=== PATIENT | male | born 1980 | race Asian ===

== ENCOUNTER 2020-07-25 07:58 | Outpatient (REF) | payer OTHER, SELFPAY | END 2020-07-25 07:59 | disposition home or self-care (01) | LOC: HO.BBR 07:58 | PROVIDERS: PCP Internal Medicine; Visit Provider Internal Medicine Hematology & Oncology | DX: Z13.89 Encounter for screening for other disorder (principal) ==

== ENCOUNTER 2020-08-18 08:57 | Outpatient (REF) | payer OTHER, SELFPAY | END 2020-08-18 08:58 | disposition home or self-care (01) | LOC: HO.BBR 08:57 | PROVIDERS: Visit Provider Internal Medicine Hematology & Oncology | DX: Z13.89 Encounter for screening for other disorder (principal) ==

== ENCOUNTER 2020-09-07 09:14 | Outpatient (REF) | payer OTHER, SELFPAY ==
[2020-09-07 09:57] LABS: MANUAL DIFF FLAG NO
[2020-09-07 10:15] LABS: Basophils Percent Auto 0.2 % (0-2); Eosinophils Absolute Auto 0.1 X10*3/uL (0.0-0.4); Hematocrit 38.8 % (42-52); Hemoglobin 13.1 g/dl (14.0-18.0); Imm Gran Abs Auto 0.01 X10*3/uL (0.00-0.03); Imm Gran Pct Auto 0.2 % (0.0-0.4); Lymphocytes Absolute Auto 1.5 X10*3/uL (1.2-4.9); Lymphocytes Percent Auto 30.8 % (20-40); Mean Corpuscular HGB Conc 33.8 g/dl (31.0-36.0); Mean Corpuscular Hemoglobin 29.8 pg (27.0-33.0); Mean Corpuscular Volume 88.4 fL (80-98); Mean Platelet Volume 11.8 fL (9.4-12.4); Monocytes Absolute Auto 0.4 X10*3/uL (0.1-1.2); Monocytes Percent Auto 9.1 % (2-11); Neutrophils Absolute Auto 2.8 X10*3/uL (2.0-8.3); Neutrophils Percent Auto 58.7 % (45-73); Platelet Count 203 X10*3/uL (160-400); Red Blood Count 4.39 X10*6/uL (4.60-5.80); Red Cell Distribution Width 13.1 % (11.0-16.0); White Blood Count 4.8 X10*3/uL (4.8-10.8)
[2020-09-07 10:52] LABS: Alanine Aminotransferase 196 U/L (0-40); Albumin Level 4.4 g/dL (3.5-5.0); Alkaline Phosphatase 68 U/L (39-117); Anion Gap 14 (12-20); Aspartate Amino Transferase 110 U/L (5-37); Bilirubin Total 0.5 mg/dL (0.0-1.0); Blood Urea Nitrogen 21 mg/dL (9-16); Carbon Dioxide 23 mmol/L (22-29); Chloride 109 mmol/L (96-108); Estimated Glomerular Filt Rate > 60; Glucose Random 124 mg/dL (60-115); Iron 93 mcg/dL (45-160); Percent Iron Saturation 22 % (15-50); Potassium 4.1 mmol/L (3.3-5.1); Sodium 142 mmol/L (135-145); Total Iron Binding Capacity 430 mcg/dL (228-428); Total Protein 7.2 g/dL (6.5-8.0); Unsaturated Iron Binding 337 ug/dL
[2020-09-07 11:05] LABS: Ferritin 305 ng/mL (20-250)
== END 2020-09-07 09:15 | disposition home or self-care (01) ==
LOC: HO.BBR 09:14
PROVIDERS: Visit Provider Internal Medicine Hematology & Oncology
DX: E83.110 Hereditary hemochromatosis (principal)
CPT/HCPCS: 36415; 80053; 82728; 83540; 85025

== ENCOUNTER 2020-10-13 09:06 | Outpatient (REF) | payer OTHER, SELFPAY | END 2020-10-13 09:07 | disposition home or self-care (01) | LOC: HO.BBR 09:06 | PROVIDERS: Visit Provider Internal Medicine Hematology & Oncology | DX: Z13.89 Encounter for screening for other disorder (principal) ==

== ENCOUNTER 2020-11-03 08:58 | Outpatient (REF) | payer OTHER, SELFPAY | END 2020-11-03 08:59 | disposition home or self-care (01) | LOC: HO.BBR 08:58 | PROVIDERS: Visit Provider Internal Medicine Hematology & Oncology | DX: Z13.89 Encounter for screening for other disorder (principal) ==

== ENCOUNTER 2020-11-23 15:52 | Outpatient (REF) | payer OTHER, SELFPAY ==
--- NOTE | ~2020-11-23 | MR_ITS ---
MR CERVICAL SPINE WITHOUT IV CONTRAST CLINICAL INFORMATION: Cervical radiculopathy. COMPARISON: None available. TECHNIQUE: MRI of the cervical spine was obtained using routine sequences without contrast. FINDINGS: Straightening the cervical lordosis. Os odontoideum. There is no bone marrow edema. There are no acute fractures. The vertebral body heights are maintained. There is moderate disc volume loss at C5-C6, C6-C7, and C7-T1. The craniocervical junction is unremarkable. The cervical arterial flow voids are maintained. There are no significant extraspinal soft tissue findings. C1-C2: There is chronic myelomalacia within the cervical cord at this level as demonstrated by increased intramedullary signal associated with cord volume loss. There is ligamentum flavum thickening without direct mass effect on the cord at this level. C2-C3: Disc osteophyte without central canal stenosis. Uncovertebral joint hypertrophy and hypertrophic facet arthropathy result in mild right-sided foraminal encroachment. C3-C4: Shallow central disc protrusion mildly indents the ventral thecal sac. Uncovertebral joint hypertrophy and hypertrophic facet arthropathy result in mild right-sided foraminal encroachment. C4-C5: Disc osteophyte without central canal stenosis. Uncovertebral joint hypertrophy and hypertrophic facet arthropathy result in mild to moderate right-sided foraminal stenosis. No central canal and no left foraminal stenosis. C5-C6: Disc osteophyte mildly narrows the central canal. Bilateral facet arthropathy. Mild foraminal encroachment bilaterally. C6-C7: Disc osteophyte mildly narrows the central canal. Uncovertebral joint spurring and facet arthropathy result in mild to moderate left-sided foraminal stenosis. C7-T1: Disc osteophyte mildly narrows the central canal. Uncovertebral joint hypertrophy and hypertrophic facet arthropathy result in mild to moderate bilateral foraminal stenosis. MR/MR cervical spine wo con IMPRESSION: - Multilevel cervical spondylosis with spondylitic changes resulting in varying degrees of mild to moderate foraminal stenosis throughout the cervical spine as discussed above. There is no severe central canal stenosis within the cervical spine. - At C1-C2, there is chronic myelomalacia within the cord. No additional cord signal abnormality. - Chronic os odontoideum.
== END 2020-11-23 15:53 | disposition home or self-care (01) ==
LOC: HO.MRI 15:52
PROVIDERS: Visit Provider Psychiatry & Neurology Neurology
DX: M54.12 Radiculopathy, cervical region (principal)
CPT/HCPCS: 72141

== ENCOUNTER 2020-11-30 10:57 | Outpatient (REF) | payer OTHER, SELFPAY | END 2020-11-30 10:58 | disposition home or self-care (01) | LOC: HO.BBR 10:57 | PROVIDERS: Visit Provider Internal Medicine Hematology & Oncology | DX: Z13.89 Encounter for screening for other disorder (principal) ==